=== PATIENT | female | born 1960 ===

== ENCOUNTER 2025-04-15 00:03 | Outpatient (RCR) | payer MEDICAID, SELFPAY ==
[2025-04-06] MEDS: Normal Saline Flush 10 ML SYR IVP (11:11)
[2025-04-06 13:19] LABS: Abs Immature Grans 0.07 10^3/uL (0.0-0.06); Absolute Eosinophil Count 0.08 10^3/uL (0.0-0.7); Absolute Lymphocyte Count 1.93 10^3/uL (1.2-3.4); Absolute Neutrophil Count 12.48 10^3/uL (1.2-6.7); Basophils % 0.3 %; Eosinophils % 0.5 %; HGB 12.2 g/dL (11.2-15.7); Immature Grans % 0.4 %; Lymphocytes % 12.2 %; MCH 27.4 pg (27.0-33.0); MCHC 32.1 % (32.0-36.0); MCV 85 fL (80-95); MPV 10.6 fL (8.0-11.0); Monocytes % 7.6 %; Platelet Count 306 10^3/uL (130-400); RBC 4.46 10^6/uL (3.93-5.22); RDW 14.4 % (11.7-14.6); RDW-SD 45.1 fL
[2025-04-06 13:22] LABS: Absolute Basophil Count 0.05 10^3/uL (0.0-0.2)
[2025-04-13] MEDS: Normal Saline Flush 10 ML SYR IVP (09:34)
[2025-04-13 09:44] LABS: Abs Immature Grans 0.05 10^3/uL (0.0-0.06); Absolute Eosinophil Count 0.12 10^3/uL (0.0-0.7); Absolute Monocyte Count 0.96 10^3/uL (0.1-0.8); Basophils % 0.3 %; HCT 35.7 % (36.0-46.0); HGB 11.6 g/dL (11.2-15.7); Immature Grans % 0.4 %; Lymphocytes % 13.8 %; MCH 27.3 pg (27.0-33.0); MCHC 32.5 % (32.0-36.0); MCV 84 fL (80-95); MPV 10.2 fL (8.0-11.0); Monocytes % 8.1 %; Neutrophils % 76.4 %; Platelet Count 298 10^3/uL (130-400); RBC 4.25 10^6/uL (3.93-5.22); WBC 11.85 10^3/uL (4.4-10.8)
[2025-04-13 09:51] LABS: Absolute Basophil Count 0.04 10^3/uL (0.0-0.2); Absolute Lymphocyte Count 1.64 10^3/uL (1.2-3.4); Absolute Neutrophil Count 9.05 10^3/uL (1.2-6.7)
[2025-04-13 10:05] LABS: ALT 144 U/L (14-59); AST 29 U/L (15-37); Albumin 3.2 g/dL (3.4-5.0); Alkaline Phosphatase 235 U/L (46-116); Anion Gap 8.5 mmol/L (3-11); BUN 4 mg/dL (7-18); Bilirubin, Total 0.7 mg/dL (0.2-1.0); CO2 29.5 mmol/L (21.0-32.0); CREATININE 0.7 mg/dL (0.55-1.02); Calcium 7.5 mg/dL (8.5-10.1); Chloride 101 mmol/L (98-107); Estimated GFR 97.12 (mL/min/1.73m2); Glucose 131 mg/dL (74-106); Potassium 3.5 mmol/L (3.5-5.1); Sodium 139 mmol/L (136-145); Total Protein 6.6 g/dL (6.4-8.2)
[2025-04-14 13:51] LABS: CA 19-9 5966 U/mL (<35)
[2025-04-15 13:57] VITALS: BP 129/87; PULSE 66; RESP 16; TEMP 36.5; O2SAT 100
[2025-04-15] MEDS: Normal Saline Flush 10 ML SYR IVP (14:19)
== END 2025-04-17 23:59 | disposition home or self-care (01) ==
LOC: INF 00:03
PROVIDERS: Nurse Practitioner Family; PCP Family Medicine; Visit Provider Internal Medicine Hematology & Oncology
DX: C25.0 Malignant neoplasm of head of pancreas (principal); Z45.2 Encounter for adjustment and management of vascular access device
CPT/HCPCS: 36591; 80053; 96523; 85025; 86301

== ENCOUNTER 2025-04-29 14:20 | Outpatient (RCR) | payer MEDICAID, SELFPAY ==
[2025-04-29 14:34] VITALS: BP 118/75; PULSE 75; RESP 18; TEMP 37.6; O2SAT 100
[2025-04-29] MEDS: Normal Saline Flush 10 ML SYR IVP (15:04)
== END 2025-05-18 23:59 | disposition home or self-care (01) ==
LOC: INF 14:20
PROVIDERS: PCP Family Medicine; Visit Provider Internal Medicine Hematology & Oncology
DX: C25.0 Malignant neoplasm of head of pancreas (principal)
CPT/HCPCS: 96523

== ENCOUNTER 2025-05-18 02:20 | Outpatient (RCR) | payer MEDICAID, SELFPAY ==
[2025-04-27] MEDS: Normal Saline Flush 10 ML SYR IVP (09:19)
[2025-04-27 09:32] LABS: Abs Immature Grans 0.03 10^3/uL (0.0-0.06); HCT 34.7 % (36.0-46.0); HGB 11.3 g/dL (11.2-15.7); Immature Grans % 0.4 %; MCH 27.0 pg (27.0-33.0); MCHC 32.6 % (32.0-36.0); MCV 83 fL (80-95); MPV 9.8 fL (8.0-11.0); Platelet Count 270 10^3/uL (130-400); RBC 4.18 10^6/uL (3.93-5.22); RDW 13.5 % (11.7-14.6); RDW-SD 41.0 fL; WBC 7.12 10^3/uL (4.4-10.8)
[2025-04-27 10:06] LABS: ALT 39 U/L (14-59); AST 25 U/L (15-37); Albumin 3.2 g/dL (3.4-5.0); Alkaline Phosphatase 107 U/L (46-116); Anion Gap 10.9 mmol/L (3-11); BUN 9 mg/dL (7-18); Bilirubin, Total 0.3 mg/dL (0.2-1.0); CO2 27.1 mmol/L (21.0-32.0); Calcium 7.0 mg/dL (8.5-10.1); Chloride 104 mmol/L (98-107); Estimated GFR 100.80 (mL/min/1.73m2); Glucose 124 mg/dL (74-106); Potassium 3.6 mmol/L (3.5-5.1); Sodium 142 mmol/L (136-145); Total Protein 6.4 g/dL (6.4-8.2)
[2025-04-28 11:37] LABS: CA 19-9 8531 U/mL (<35)
[2025-05-11] MEDS: Normal Saline Flush 10 ML SYR IVP (09:34)
[2025-05-11 09:39] LABS: Abs Immature Grans 0.04 10^3/uL (0.0-0.06); HCT 33.0 % (36.0-46.0); HGB 10.4 g/dL (11.2-15.7); Immature Grans % 0.5 %; MCH 25.5 pg (27.0-33.0); MCHC 31.5 % (32.0-36.0); MCV 81 fL (80-95); MPV 9.6 fL (8.0-11.0); Platelet Count 266 10^3/uL (130-400); RBC 4.08 10^6/uL (3.93-5.22); RDW 13.1 % (11.7-14.6); RDW-SD 38.0 fL; WBC 8.01 10^3/uL (4.4-10.8)
[2025-05-11 10:00] LABS: ALT 33 U/L (14-59); AST 21 U/L (15-37); Albumin 2.7 g/dL (3.4-5.0); Alkaline Phosphatase 140 U/L (46-116); Anion Gap 7.8 mmol/L (3-11); BUN 5 mg/dL (7-18); Bilirubin, Total 0.4 mg/dL (0.2-1.0); CO2 30.2 mmol/L (21.0-32.0); Calcium 7.2 mg/dL (8.5-10.1); Chloride 98 mmol/L (98-107); Estimated GFR 100.80 (mL/min/1.73m2); Glucose 137 mg/dL (74-106); Potassium 3.3 mmol/L (3.5-5.1); Sodium 136 mmol/L (136-145); Total Protein 6.7 g/dL (6.4-8.2)
[2025-05-11 10:01] LABS: RBC Morphology Normal
[2025-05-12 14:15] LABS: CA 19-9 6982 U/mL (<35)
[2025-05-18 10:13] LABS: Abs Immature Grans 0.17 10^3/uL (0.0-0.06); HCT 36.4 % (36.0-46.0); HGB 11.8 g/dL (11.2-15.7); Immature Grans % 1.4 %; MCH 26.2 pg (27.0-33.0); MCHC 32.4 % (32.0-36.0); MCV 81 fL (80-95); MPV 9.5 fL (8.0-11.0); Platelet Count 393 10^3/uL (130-400); RBC 4.51 10^6/uL (3.93-5.22); RDW 13.7 % (11.7-14.6); RDW-SD 40.0 fL; WBC 11.80 10^3/uL (4.4-10.8)
[2025-05-18 10:30] LABS: ALT 32 U/L (14-59); AST 22 U/L (15-37); Albumin 2.8 g/dL (3.4-5.0); Alkaline Phosphatase 132 U/L (46-116); Anion Gap 9.7 mmol/L (3-11); BUN 7 mg/dL (7-18); Bilirubin, Total 0.3 mg/dL (0.2-1.0); CO2 30.3 mmol/L (21.0-32.0); Calcium 8.2 mg/dL (8.5-10.1); Chloride 101 mmol/L (98-107); Estimated GFR 71.83 (mL/min/1.73m2); Glucose 127 mg/dL (74-106); Potassium 3.5 mmol/L (3.5-5.1); Sodium 141 mmol/L (136-145); Total Protein 6.7 g/dL (6.4-8.2)
[2025-05-18] MEDS: Normal Saline Flush 10 ML SYR IVP (13:12)
[2025-05-19 13:52] LABS: CA 19-9 7270 U/mL (<35)
== END 2025-05-18 23:59 | disposition home or self-care (01) ==
LOC: INF 02:20
PROVIDERS: Nurse Practitioner Family; PCP Family Medicine; Visit Provider Internal Medicine Hematology & Oncology
DX: C25.0 Malignant neoplasm of head of pancreas (principal); Z45.2 Encounter for adjustment and management of vascular access device
CPT/HCPCS: 36415; 36591; 80053; 85025; 86301

== ENCOUNTER 2025-06-10 00:18 | Outpatient (RCR) | payer MEDICAID, SELFPAY ==
[2025-05-20 14:37] VITALS: BP 93/50; PULSE 72; RESP 18; TEMP 36.4; O2SAT 99
[2025-05-20] MEDS: Normal Saline Flush 10 ML SYR IVP (14:40)
[2025-06-01 10:22] LABS: ALT 48 U/L (14-59); AST 32 U/L (15-37); Albumin 2.5 g/dL (3.4-5.0); Alkaline Phosphatase 126 U/L (46-116); Anion Gap 11.2 mmol/L (3-11); BUN 5 mg/dL (7-18); Bilirubin, Total 0.3 mg/dL (0.2-1.0); CO2 29.8 mmol/L (21.0-32.0); Chloride 102 mmol/L (98-107); Estimated GFR 97.12 (mL/min/1.73m2); Glucose 129 mg/dL (74-106); Sodium 143 mmol/L (136-145); Total Protein 6.0 g/dL (6.4-8.2)
[2025-06-01 10:33] LABS: Calcium 6.3 mg/dL (8.5-10.1)
[2025-06-01 10:34] LABS: Potassium 2.9 mmol/L (3.5-5.1)
[2025-06-01] MEDS: Normal Saline Flush 10 ML SYR IVP (12:20)
[2025-06-10] MEDS: Normal Saline Flush 10 ML SYR IVP (13:12)
[2025-06-10 17:36] VITALS: BP 101/50; PULSE 72; RESP 18; TEMP 36.4; O2SAT 99
== END 2025-06-18 23:59 | disposition home or self-care (01) ==
LOC: INF 00:18
PROVIDERS: Nurse Practitioner Family; PCP Family Medicine; Visit Provider Internal Medicine Hematology & Oncology
DX: C25.0 Malignant neoplasm of head of pancreas (principal); Z45.2 Encounter for adjustment and management of vascular access device
CPT/HCPCS: 36591; 80053; 96523